=== PATIENT | male | born 1935 | race Caucasian/White ===

== ENCOUNTER 2017-04-19 14:19 | Outpatient (CLI) | payer MEDICARE ==
[~2017-04-19 14:19] MED LIST: Iopamidol 370 76% 100 ML VIAL ONE
--- NOTE | 2017-04-19 16:27 | CT ---
CT OF THE CHEST WITH CONTRAST 04/19/17 COMPARISON: None. HISTORY: Acute on chronic respiratory failure with hypoxia. Pneumonia. TECHNIQUE: Multiple contiguous axial images were obtained in a CT of the chest with contrast. Coronal reformats were performed. FINDINGS: Atelectasis is seen in the posterior aspect of the right middle lobe. A calcified granuloma is seen i n the right upper lobe. No infiltrates are seen in the lungs. No pneumothorax or pleural effusion are seen. The heart is normal in size without focal cardiac abnormality. No hilar or mediastinal lymphadenopath y are seen. Calcifications are seen in the coronary arteries and aorta. Degenerative changes are seen in the spine. The chest wall soft tissues are unremarkable. There are h ypodensities in the liver and kidneys which represent cysts. The other visualized subdiaphragmatic st ructures are unremarkable. IMPRESSION: 1. Right middle lobe atelectasis without acute infiltrate. 2. Hepatic and renal cysts. POS: [facility]
[2017-04-21 12:55] LABS: Calc. Creatinine Clearance 0 mL/min (70-130); Estimated GFR-MDRD Greater than 90
== END 2017-04-19 14:20 | disposition home or self-care (01) ==
LOC: MADCT 14:19
PROVIDERS: ATTEND Family Medicine
DX: R13.10 Dysphagia, unspecified (principal); J98.11 Atelectasis; K76.89 Other specified diseases of liver; N28.1 Cyst of kidney, acquired
CPT/HCPCS: 36415; 71260; 82565

== ENCOUNTER 2017-07-19 08:09 | Emergency (ER) | payer MEDICARE ==
[~2017-07-19 08:09] MED LIST changes: -Iopamidol 370 76% 100 ML VIAL ONE; +Sterile Water Irrigation 250 ML BOT ONE
[2017-07-19] MEDS ORDERED: Lidocaine 2% w/Epinephrine 1:200K 20 ML VIAL ONE (08:32)
[2017-07-19] MEDS ORDERED: Triple Antibiotic Oint 1 GM Packet ONE (08:32)
[2017-07-19] MEDS ORDERED: Adacel (T-DAP) 0.5 ML VIAL ONE (08:38)
--- NOTE | 2017-07-19 10:10 | CT ---
CT OF THE HEAD WITHOUT CONTRAST: DATE: 07/19/17. COMPARISON: None. HISTORY: Fall, head laceration, left-sided pain. TECHNIQUE: Serial axial CT imaging obtained at 5 mm intervals from the vertex through the skull base without con trast. Coronal and sagittal reformatted imaging obtained. FINDINGS: There is a focal area of left frontal scalp swelling with associated subcutaneous gas, evidence of a left frontal scalp laceration. There is moderate diffuse cerebral volume loss with extensive periventricular deep and subcortical wh ite matter hypodensities suggesting significant small-vessel disease. The imaged paranasal sinuses/mastoid air cells are well aerated. No displaced calvarial fracture is noted. There is no intracranial hemorrhage, midline shift, or mass effect. IMPRESSION: Left frontal scalp laceration. Cerebral volume loss and small-vessel disease. No intracranial hemor rhage or displaced calvarial fracture. POS: [facility]
--- NOTE | 2017-07-19 10:13 | CT ---
CT CERVICAL SPINE: HISTORY: Fall from halfway bed. Injury. Neck pain. COMPARISON: None. TECHNIQUE: Noncontrast cervical spine CT is performed in the axial plane. Reformatted images are submitted for interpretation. FINDINGS: Visualized soft tissue neck structures are unremarkable. No prevertebral soft tissue swelling. Uppe r mediastinum and lung apices are unremarkable. Varying degrees of central canal stenosis and foraminal narrowing on the basis of degenerative change . No craniocervical dissociation. Odontoid process is intact. Adequate alignment of the lateral josselyn s of C1 and C2 as well as the facets. There is extensive multilevel facet hypertrophy. Straightening of normal cervical lordosis identified. Moderate degenerative change at C5-C6 and C6-C 7. Vacuum disk phenomenon at C6-C7. Cervical spine vertebral body height is maintained. There is n o fracture. 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 IMPRESSION: 1. No cervical spine fracture. 2. Degenerative change of the cervical spine with significant foraminal narrowing at multiple levels . POS: [facility]
== END 2017-07-19 12:01 ==
LOC: MADERS 08:09
DX: S01.81XA Laceration without foreign body of other part of head, initial encounter (principal); G20 Parkinson's disease; J45.909 Unspecified asthma, uncomplicated; Z79.899 Other long term (current) drug therapy; W06.XXXA Fall from bed, initial encounter
CPT/HCPCS: 12002; 70450; 72125; 90471; 90715